=== PATIENT | male | born 1995 | race Caucasian/White ===

== ENCOUNTER 2017-06-25 19:53 | Emergency (ER) | payer OTHER ==
[~2017-06-25] VITALS: Ht 175.3 cm; Wt 63.5 kg
[~2017-06-25 19:53] MED LIST: ACETAMINOPHEN-1 EAC1 PO; ACETAMINOPHEN-1 EACH PO; AUGMENTIN 500-1 EACH PO; HYDROCODONE-AP1 EAC6 PO; KEFLEX500 MG PO; MOBIC7.5 MG PO; NOHOMEMEDICATIONS
[2017-06-25 20:36] LABS: URINE BILIRUBIN 1+ (Negative); URINE BLOOD TRACE (Negative); URINE CLARITY CLEAR; URINE COLOR YELLOW; URINE GLUCOSE-RANDOM NEGATIVE (Negative); URINE KETONES TRACE (Negative); URINE LEUKOCYTES-REFLEX NEGATIVE (Negative); URINE NITRITE-REFLEX NEGATIVE (Negative); URINE PROTEIN TRACE (Negative); URINE SPECIFIC GRAVITY 1.015 (1.005-1.030)
[2017-06-25 20:38] LABS: ICTOTEST (BILI CONFIRMATORY) Negative (Negative)
[2017-06-25 20:57] LABS: HEMATOCRIT 40.4 % (42.0-52.0); HEMOGLOBIN 14.2 gm/dL (14.0-18.0); MCH 29.5 pg (26.0-34.0); MCHC 35.1 g/dL (28.0-37.0); MCV 83.9 fL (80.0-100.0); MPV 8.8 fl. (7.2-11.1); NUCLEATED RBCS 0 /100WBC; PLATELET COUNT* 98 thou/uL (150-400); RBC 4.81 mil/uL (4.50-6.00); RDW-CV 12.8 % (10.5-14.5); WBC 2.3 thou/uL (4.0-11.0)
[2017-06-25 21:01] LABS: ANION GAP 6 mmol/L (7-16); BUN 15 mg/dL (7-18); CALCIUM 8.4 mg/dL (8.5-10.1); CHLORIDE 101 mmol/L (98-107); CO2 31 mmol/L (21-32); CREATININE 1.3 mg/dL (0.6-1.3); GLUCOSE 98 mg/dL (70-99); POTASSIUM 4.3 mmol/L (3.5-5.1); SODIUM 138 mmol/L (136-145)
[2017-06-25 21:08] LABS: ALBUMIN 3.8 g/dL (3.4-5.0); ALKALINE PHOSPHATASE 70 U/L (46-116); LIPASE 47 U/L (73-393); SGOT 19 U/L (15-37); SGPT 20 U/L (30-65); TOTAL BILIRUBIN 0.6 mg/dL (<0.1-1.0); TOTAL PROTEIN 6.8 g/dL (6.4-8.2); TROPONIN-I LEVEL <0.06 ng/mL (<0.06)
[2017-06-25 21:24] LABS: INFLUENZA A ANTIGEN None Detected (None Detect)
[2017-06-25 21:29] LABS: ABSOLUTE LYMPHOCYTES 0.7 thou/uL (0.8-5.3); ABSOLUTE MONOCYTES 0.3 thou/uL (0.0-1.2); ABSOLUTE NEUTROPHILS 1.2 thou/uL (1.6-8.1); ANISOCYTOSIS Occasional; PLATELET ESTIMATE DECREASED
[2017-06-25 23:25] VITALS: BP 110/55
--- NOTE | 2017-06-26 13:53 | EKG ---
[place] [address] ELECTROCARDIOGRAM REPORT Name: JUAN C ORTIZ 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 06/26/17 1353 2036 2036 Zach Rey MD, FACC /EPI
== END 2017-06-25 23:25 | disposition home or self-care (01) ==
LOC: M.ERS 19:53
PROVIDERS: Emergency Medicine Emergency Medical Services
DX: I95.1 Orthostatic hypotension (principal); J11.1 Influenza due to unidentified influenza virus with other respiratory manifestations